=== PATIENT | female | born 1975 | race American Indian/Alaskan Native ===

== ENCOUNTER 2016-09-24 09:52 | Outpatient (CLI) | payer OTHER ==
--- NOTE | 2016-09-25 10:58 | Mammography Report ---
BILATERAL DIGITAL SCREENING MAMMOGRAM with CAD: 09/24/16 09:52:00 CLINICAL: Baseline screening. FINDINGS: The breasts are heterogeneously dense, which may obscure small masses. Left asymmetries require additional imaging.No architectural distortion or suspicious calcifications.The right breast is negative. IMPRESSION: Left asymmetries requiring further workup. BI-RADS CATEGORY: 0 -- Additional Imaging Evaluation Required RECOMMENDATION: Recall for left spot compression views and left breast ultrasound if needed. ACR BI-RADS MAMMOGRAPHIC CODES: 0 = Needs additional imaging evaluation; 1 = Negative; 2 = Benign; 3 = Probably benign; 4 = Suspicious; 5 = Malignant; 6 = Known biopsy-proven malignancy COMMENT: 1. Dense breast tissue, i.e., adenosis, fibrocystic changes, etc., may obscure an underlying neoplasm. 2. Approximately 10% of cancers are not detected with mammography. 3. A negative mammography report should not delay biopsy if a clinically suspicious mass is present. COMMENT: Patient follow-up letters are generated via our [employer] application.
== END 2016-09-24 09:53 | disposition home or self-care (01) ==
LOC: SPVWC 09:52
PROVIDERS: ATTEND Nurse Practitioner Gerontology
DX: Z12.31 Encounter for screening mammogram for malignant neoplasm of breast (principal); D64.9 Anemia, unspecified
CPT/HCPCS: 77067; G0202

== ENCOUNTER 2016-10-15 10:09 | Outpatient (CLI) | payer OTHER ==
--- NOTE | 2016-10-15 12:05 | Mammography Report ---
LEFT DIGITAL DIAGNOSTIC MAMMOGRAM and LEFT BREAST ULTRASOUND: 10/15/16 10:09:00 CLINICAL: Recalled for asymmetry. COMPARISON:09/24/16 screening FINDINGS: Spot compression MLO and CC views were performed. Satisfactory effacement of the previously described asymmetry near the nipple on the CC view. Near complete effacement of upper asymmetry on the MLO view. Ultrasound of the left breast (including all four quadrants and the retroareolar area) was performed and demonstrated a benign cyst at 3 o'clock 7 cm from the nipple measuring 1.2 x 0.3 x 1.1 cm. No other cysts and no mass or shadowing to correlate with the mammographic asymmetry. IMPRESSION: A probably benign left asymmetry with a negative ultrasound. BI-RADS CATEGORY: 3 - - Probably Benign RECOMMENDATION: Six month followup left mammogram and left breast ultrasound needed. ACR BI-RADS MAMMOGRAPHIC CODES: 0 = Needs additional imaging evaluation; 1 = Negative; 2 = Benign; 3 = Probably benign; 4 = Suspicious; 5 = Malignant; 6 = Known biopsy-proven malignancy COMMENT: 1. Dense breast tissue, i.e., adenosis, fibrocystic changes, etc., may obscure an underlying neoplasm. 2. Approximately 10% of cancers are not detected with mammography. 3. A negative mammography report should not delay biopsy if a clinically suspicious mass is present. COMMENT: Patient follow-up letters are generated via our [employer] application.
== END 2016-10-15 10:10 | disposition home or self-care (01) ==
LOC: SPVWC 10:09
PROVIDERS: ATTEND Obstetrics & Gynecology Gynecology
DX: N60.02 Solitary cyst of left breast (principal); Z71.2 Person consulting for explanation of examination or test findings
CPT/HCPCS: 76641; G0206

== ENCOUNTER 2016-12-03 10:42 | Outpatient (CLI) | payer OTHER ==
--- NOTE | 2016-12-04 08:26 | XRay Report ---
LUMBAR SPINE RADIOGRAPHS: INDICATION: Sciatica. COMPARISON: None similar. FINDINGS: AP and lateral lumbar spine radiographs demonstrate severe levoscoliosis apex angulation at L1-L2 with asymmetric disc narrowing and spurring towards the right. Lower lumbar facet arthropathy. Clear visualized lung bases. CONCLUSION: Severe lumbar levoscoliosis and multilevel degenerative changes without acute lumbar radiographic abnormality. Please correlate. Thank you for the opportunity to participate in this patient's care.
== END 2016-12-03 10:43 | disposition home or self-care (01) ==
LOC: SPVIMAG 10:42
DX: M47.896 Other spondylosis, lumbar region (principal); M41.86 Other forms of scoliosis, lumbar region; M12.88 Other specific arthropathies, not elsewhere classified, other specified site; D64.9 Anemia, unspecified
CPT/HCPCS: 72100